=== PATIENT | male | born 1955 | race Asian ===

== ENCOUNTER 2017-07-03 03:33 | Emergency (ER) | payer SELFPAY ==
[~2017-07-03] VITALS: Ht 193 cm; Wt 118.0 kg
[~2017-07-03 03:33] MED LIST: ACC10 PO; ASPI-1073 PO; ATEN100T PO; ATOR80TA PO; GLIP10TA3 PO; GLYB5TAB7 PO; METF10002 PO; PIOG45TA5 PO; RANI150T7 PO
[2017-07-03 06:53] LABS: BASOPHILS % 0.5 % (0.0-2.0); EOSINOPHILS % 5.1 % (0.0-5.0); HEMATOCRIT. 43.9 % (42.0-52.0); HEMOGLOBIN. 14.5 g/dL (14.0-18.0); MEAN CORPUSCULAR HEMOGLOBIN 30.1 pg (28.0-32.0); MEAN CORPUSCULAR VOLUME 91.5 fL (80.0-94.0); MONOCYTES % 8.5 % (2.0-8.0); NEUTROPHILS % 52.9 % (40.0-76.0); PLATELET 243 x1000/uL (130-400); RED CELL DISTRIBUTION WIDTH 13.5 % (11.6-14.6)
[2017-07-03 06:54] LABS: CARBON DIOXIDE 27 mEq/L (21-32); CHLORIDE 99 mEq/L (98-107); TROPONIN I < 0.02 ng/mL (0.00-0.04)
[2017-07-03 07:04] LABS: PARTIAL THROMBOPLASTIN TIME 24.3 sec (23.4-31.0); PROTHROMBIN TIME 10.7 sec (9.4-11.6)
[2017-07-03 08:08] VITALS: BP 141/83
== END 2017-07-03 08:17 | disposition home or self-care (01) ==
LOC: ER 03:43
DX: F41.0 Panic disorder [episodic paroxysmal anxiety] (principal); I10 Essential (primary) hypertension; E11.9 Type 2 diabetes mellitus without complications; I44.0 Atrioventricular block, first degree; Z95.1 Presence of aortocoronary bypass graft; Z79.82 Long term (current) use of aspirin; Z89.512 Acquired absence of left leg below knee; Z79.899 Other long term (current) drug therapy; Z79.84 Long term (current) use of oral hypoglycemic drugs
CPT/HCPCS: 36415; 71010; 80053; 83690; 84484; 85025; 85610; 85730; 93005; 99285; Z7610